=== PATIENT | male | born 1940 | race Caucasian/White ===

== ENCOUNTER 2016-10-28 13:55 | Emergency (ER) | payer MEDICARE ==
--- NOTE | 2016-10-28 14:42 | EDM.PDOC ---
ED HPI GENERAL MEDICAL PROBLEM - General Chief Complaint: Abdominal Pain Stated Complaint: RT SIDE PAIN Time Seen by Provider: 10/28/16 14:37 Source of Information: Reports: Patient, Family (spouse) History Limitations: Reports: No Limitations, Intoxication - History of Present Illness INITIAL COMMENTS - FREE TEXT/NARRATIVE: Pt presents with right sided abdominal pain x 2 days. States that it so severe that he only wants to lie flat. Denies fever, nausea, vomiting, diarrhea. Last BM 2 days ago. Admits to a long problem with alcohol in his life. Reports sobriety x 270 days before falling off the wagon about 2 weeks ago. also gives history. He denies recent illness. Has not eaten today. Onset: Gradual Onset Date: 10/26/16 Location: Reports: Abdomen Quality: Reports: Stabbing Improves with: Reports: Rest Worsens with: Reports: None Associated Symptoms: Reports: Loss of Appetite Right Abdomen Pain Score (Numeric/FACES): 8 - Related Data Allergies Allergy/AdvReac Type Severity Reaction Status Date / Time No Known Allergies Allergy Verified 10/28/16 15:57 Home Meds: Home Meds LORazepam [LORazepam] 1 tab PO ASDIRECTED 10/28/16 [History] Past Medical History HEENT History: Reports: Cataract Genitourinary History: Reports: Renal Calculus Psychiatric History: Reports: Addiction, Anxiety Oncologic (Cancer) History: Reports: Other (See Below) Other Oncologic History: skin cancer Dermatologic History: Reports: Other (See Below) Other Dermatologic History: skin cancer - Past Surgical History HEENT Surgical History: Reports: Cataract Surgery GI Surgical History: Reports: Appendectomy Male Surgical History: Reports: Lithotripsy (ESWL) Social & Family History - Tobacco Use Smoking Status *Q: Never Smoker Years of Tobacco use: 4 Used Tobacco, but Quit: Yes Month Tobacco Last Used: may Second Hand Smoke Exposure: No - Recreational Drug Use Recreational Drug Use: No ED ROS GENERAL - Review of Systems Review Of Systems: See Below Constitutional: Reports: No Symptoms HEENT: Reports: No Symptoms Respiratory: Reports: No Symptoms Cardiovascular: Reports: No Symptoms Endocrine: Reports: No Symptoms GI/Abdominal: Reports: Abdominal Pain : Reports: No Symptoms Musculoskeletal: Reports: No Symptoms Skin: Reports: No Symptoms ED EXAM, GI/ABD - Physical Exam Exam: See Below Exam Limited By: Intoxication General Appearance: Alert, WD/WN, Mild Distress, Thin Ears: Normal External Exam, Normal Canal, Hearing Grossly Normal, Normal TMs Nose: Normal Inspection, Normal Mucosa, No Blood Throat/Mouth: Normal Inspection, Normal Lips, Normal Teeth, Normal Gums, Normal Oropharynx, Normal Voice, No Airway Compromise Head: Atraumatic, Normocephalic Neck: Normal Inspection, Supple, Non-Tender, Full Range of Motion Respiratory/Chest: No Respiratory Distress, Lungs Clear, Normal Breath Sounds, No Accessory Muscle Use, Chest Non-Tender Cardiovascular: Normal Peripheral Pulses, Regular Rate, Rhythm, No Edema, No Gallop, No JVD, No Murmur, No Rub GI/Abdominal Exam: Tender (right upper quadrant), Hepatomegaly Back Exam: Normal Inspection, Full Range of Motion, NT Extremities: Normal Inspection, Normal Range of Motion, Non-Tender, Normal Capillary Refill, No Pedal Edema Neurological: Alert, Oriented, CN II-XII Intact, Normal Cognition, Normal Gait, Normal Reflexes, No Motor/Sensory Deficits Psychiatric: Normal Affect, Normal Mood Skin Exam: Warm, Dry, Intact, Normal Color, No Rash Lymphatic: No Adenopathy Course - Vital Signs Last Recorded V/S: Last Vital Signs Temp 98.4 F 10/28/16 14:20 Pulse 63 10/28/16 15:20 Resp 18 10/28/16 15:20 BP 138/71 10/28/16 15:50 Pulse Ox 93 L 10/28/16 15:50 - Orders/Labs/Meds Orders: Active Orders 24 hr Category Date Time Status Abdomen Pelvis w Cont [CT] Stat Exams 10/28/16 15:35 Taken Iopamidol [Isovue-300 (61%)] Med 10/28/16 15:55 Active 100 ml IV . DIRECTED PRN Lactated Ringers [Ringers, Lactated] 1,000 ml Med 10/28/16 16:00 Active IV ASDIRECTED Sodium Chloride 0.9% [Normal Saline] 74 ml Med 10/28/16 16:00 Active IV ASDIRECTED Medication Orders Lactated Ringer's (Ringers, Lactated) 1,000 mls @ 500 mls/hr IV ASDIRECTED ROBBIN Last Admin: 10/28/16 15:57 Dose: 500 mls/hr Sodium Chloride (Normal Saline) 74 mls @ 3.4 mls/sec IV ASDIRECTED ROBBIN Last Admin: 10/28/16 16:04 Dose: 3.4 mls/sec Iopamidol (Isovue-300 (61%)) 100 ml IV . DIRECTED PRN PRN Reason: RADIOLOGY EXAM Stop: 10/29/16 15:56 Last Admin: 10/28/16 16:04 Dose: 100 ml Labs: Laboratory Tests 10/28/16 10/28/16 10/28/16 Range/Units 14:37 14:43 14:43 WBC 7.6 (4.5-11.0) K/uL RBC 4.53 (4.30-5.90) M/uL Hgb 14.8 (12.0-15.0) g/dL Hct 43.0 (40.0-54.0) % MCV 95 (80-98) fL MCH 33 H (27-31) pg MCHC 34 (32-36) % Plt Count 145 L (150-400) K/uL Neut % (Auto) 68 H (36-66) % Lymph % (Auto) 19 L (24-44) % [place] % (Auto) 11 H (2-6) % Eos % (Auto) 2 (2-4) % Baso % (Auto) 1 (0-1) % Sodium 144 (140-148) mmol/L Potassium 4.0 (3.6-5.2) mmol/L Chloride 104 (100-108) mmol/L Carbon Dioxide 26 (21-32) mmol/L Anion Gap 14.0 (5.0-14.0) mmol/L BUN 14 (7-18) mg/dL Creatinine 1.0 (0.8-1.3) mg/dL Est Cr Clr Drug Dosing 64.89 mL/min Estimated GFR (MDRD) > 60 (>60) Glucose 118 H (74-106) mg/dL Calcium 8.5 (8.5-10.1) mg/dL Total Bilirubin 0.3 (0.2-1.0) mg/dL AST 34 (15-37) U/L ALT 29 (12-78) U/L Alkaline Phosphatase 88 (46-116) U/L Total Protein 7.9 (6.4-8.2) g/dL Albumin 3.6 (3.4-5.0) g/dL Globulin 4.3 H (2.3-3.5) g/dL Albumin/Globulin Ratio 0.8 L (1.2-2.2) Amylase 32 (25-115) U/L Lipase 251 (73-393) U/L Urine Color Urine Appearance Urine pH (4.5-8.0) Ur Specific [place] (1.008-1.030) Urine Protein (NEGATIVE) mg/dL Urine Glucose (UA) (NEGATIVE) mg/dL Urine Ketones (NEGATIVE) mg/dL Urine Occult Blood (NEGATIVE) Urine Nitrite (NEGAITVE) Urine Bilirubin (NEGATIVE) Urine Urobilinogen (NORMAL) mg/dL Ur Leukocyte Esterase (NEGATIVE) Ethyl Alcohol mg/dL 10/28/16 10/28/16 Range/Units 14:43 14:56 WBC (4.5-11.0) K/uL RBC (4.30-5.90) M/uL Hgb (12.0-15.0) g/dL Hct (40.0-54.0) % MCV (80-98) fL MCH (27-31) pg MCHC (32-36) % Plt Count (150-400) K/uL Neut % (Auto) (36-66) % Lymph % (Auto) (24-44) % [place] % (Auto) (2-6) % Eos % (Auto) (2-4) % Baso % (Auto) (0-1) % Sodium (140-148) mmol/L Potassium (3.6-5.2) mmol/L Chloride (100-108) mmol/L Carbon Dioxide (21-32) mmol/L Anion Gap (5.0-14.0) mmol/L BUN (7-18) mg/dL Creatinine (0.8-1.3) mg/dL Est Cr Clr Drug Dosing mL/min Estimated GFR (MDRD) (>60) Glucose (74-106) mg/dL Calcium (8.5-10.1) mg/dL Total Bilirubin (0.2-1.0) mg/dL AST (15-37) U/L ALT (12-78) U/L Alkaline Phosphatase (46-116) U/L Total Protein (6.4-8.2) g/dL Albumin (3.4-5.0) g/dL Globulin (2.3-3.5) g/dL Albumin/Globulin Ratio (1.2-2.2) Amylase (25-115) U/L Lipase (73-393) U/L Urine Color Yellow Urine Appearance Clear Urine pH 6.0 (4.5-8.0) Ur Specific [place] 1.020 (1.008-1.030) Urine Protein Negative (NEGATIVE) mg/dL Urine Glucose (UA) Normal (NEGATIVE) mg/dL Urine Ketones Negative (NEGATIVE) mg/dL Urine Occult Blood Moderate (NEGATIVE) Urine Nitrite Negative (NEGAITVE) Urine Bilirubin Negative (NEGATIVE) Urine Urobilinogen Normal (NORMAL) mg/dL Ur Leukocyte Esterase Negative (NEGATIVE) Ethyl Alcohol 247 mg/dL Meds: Medications Generic Name Dose Route Start Last Admin Trade Name Freq PRN Reason Stop Dose Admin Lactated Ringer's 1,000 mls @ 500 mls/hr 10/28/16 16:00 10/28/16 15:57 Ringers, Lactated IV 500 mls/hr ASDIRECTED ROBBIN Administration Sodium Chloride 74 mls @ 3.4 mls/sec 10/28/16 16:00 10/28/16 16:04 Normal Saline IV 3.4 mls/sec ASDIRECTED ROBBIN Administration Iopamidol 100 ml 10/28/16 15:55 10/28/16 16:04 Isovue-300 (61%) IV 10/29/16 15:56 100 ml . DIRECTED PRN Administration RADIOLOGY EXAM Discontinued Medications Generic Name Dose Route Start Last Admin Trade Name Freq PRN Reason Stop Dose Admin Lorazepam 0.5 mg 10/28/16 15:38 10/28/16 15:56 Ativan IVPUSH 10/28/16 15:39 0.5 mg ONETIME ONE Administration Departure - Departure Time of Disposition: 16:43 Disposition: Home, Self-Care 01 Condition: Good Clinical Impression: Right-sided abdominal pain of unknown cause, ETOH abuse - Discharge Information Instructions: Abdominal Pain, Adult, [id number] Referrals: Haile Byers MD [Primary Care Provider] - Forms: ED Department Discharge Additional Instructions: ETOH elevated. Other labs WNL. CT of abdomen and pelvis normal. IV of LR 1000ml infused while pt. here. Ativan 0.5mg IV given per pt request for anxiety. Discussed findings with pt and spouse. Pt to followup with surgeon this week if pain persists. Encouraged to seek out an AA meeting. - Problem List & Annotations (1) ETOH abuse SNOMED Code(s): 78632343 Code(s): F10.10 - ALCOHOL ABUSE, UNCOMPLICATED Status: Acute Priority: Medium Current Visit: Yes (2) Right-sided abdominal pain of unknown cause SNOMED Code(s): 397574761 Code(s): R10.9 - UNSPECIFIED ABDOMINAL PAIN Status: Acute Current Visit: Yes - My Orders Last 24 Hours: My Active Orders 10/28/16 15:35 Abdomen Pelvis w Cont [CT] Stat 10/28/16 15:55 Iopamidol [Isovue-300 (61%)] 100 ml IV . DIRECTED PRN 10/28/16 16:00 Lactated Ringers [Ringers, Lactated] 1,000 ml IV ASDIRECTED Sodium Chloride 0.9% [Normal Saline] 74 ml IV ASDIRECTED - Assessment/Plan Last 24 Hours: My Active Orders 10/28/16 15:35 Abdomen Pelvis w Cont [CT] Stat 10/28/16 15:55 Iopamidol [Isovue-300 (61%)] 100 ml IV . DIRECTED PRN 10/28/16 16:00 Lactated Ringers [Ringers, Lactated] 1,000 ml IV ASDIRECTED Sodium Chloride 0.9% [Normal Saline] 74 ml IV ASDIRECTED
[2016-10-28] MEDS ORDERED: LORazepam 2 MG/ML MDV IVPUSH ONE (15:38)
[2016-10-28] MEDS ORDERED: Iopamidol 612 MG/ML 100 ML Bottle IV PRN (15:55)
[2016-10-28] MEDS ORDERED: Lactated Ringers 1,000 ML IV SCH (16:00)
[2016-10-28 17:27] VITALS: BP 152/86
== END 2016-10-28 17:48 | disposition home or self-care (01) ==
LOC: JP.ED 13:55
DX: R10.9 Unspecified abdominal pain (principal); F10.10 Alcohol abuse, uncomplicated; Z90.49 Acquired absence of other specified parts of digestive tract; Z98.49 Cataract extraction status, unspecified eye; Z85.828 Personal history of other malignant neoplasm of skin; Z98.890 Other specified postprocedural states
CPT/HCPCS: 36415; 74177; 80053; 81003; 82150; 83690; 85025; 96361; 96374; 99283; 99284; G0480; J2060; J7030; J7120; Q9967

== ENCOUNTER 2017-09-16 16:50 | Emergency (ER) | payer MEDICARE ==
[2017-09-16] MEDS ORDERED: Ketorolac 30 MG/ML SDV IVPUSH ONE (16:53)
[2017-09-16] MEDS ORDERED: Acetaminophen 325 MG Tab PO ONE (18:06)
--- NOTE | 2017-09-16 18:10 | EDM.PDOC ---
ED HPI GENERAL MEDICAL PROBLEM - General Chief Complaint: Genitourinary Problem Stated Complaint: KIDNEY STONE? Time Seen by Provider: 09/16/17 18:01 Source of Information: Reports: Patient History Limitations: Reports: No Limitations - History of Present Illness INITIAL COMMENTS - FREE TEXT/NARRATIVE: pt arrived with low back pain and rt flank pain. He did strain is back a few days ago and that was getting better. He is not having pain when he voids. he is going more often. he does have a fever. He has had chills. he did have very severe pain when he was at home he is better now but he has had torodol. Onset: Today, Sudden Duration: Hour(s):, Other ( Itr is better now. He does have a fever. ) Location: Reports: Abdomen, Other ( rt flank and low back area. ) Associated Symptoms: Reports: No Other Symptoms, Diaphoresis r flank Pain Score (Numeric/FACES): 10 - Related Data Allergies Allergy/AdvReac Type Severity Reaction Status Date / Time No Known Allergies Allergy Verified 09/16/17 16:52 Home Meds: Home Meds LORazepam 1 tab PO ASDIRECTED 10/28/16 [History] Past Medical History HEENT History: Reports: Cataract Genitourinary History: Reports: Renal Calculus Psychiatric History: Reports: Addiction, Anxiety Oncologic (Cancer) History: Reports: Other (See Below) Other Oncologic History: skin cancer Dermatologic History: Reports: Other (See Below) Other Dermatologic History: skin cancer - Infectious Disease History Infectious Disease History: Reports: Chicken Pox, Measles, Mumps - Past Surgical History HEENT Surgical History: Reports: Cataract Surgery GI Surgical History: Reports: Appendectomy Male Surgical History: Reports: Lithotripsy (ESWL) Social & Family History - Tobacco Use Smoking Status *Q: Never Smoker Second Hand Smoke Exposure: No - Caffeine Use Caffeine Use: Reports: Coffee - Alcohol Use Days Per Week of Alcohol Use: 0 - Recreational Drug Use Recreational Drug Use: No ED ROS GENERAL - Review of Systems Review Of Systems: See Below Constitutional: Reports: No Symptoms HEENT: Reports: No Symptoms Respiratory: Reports: No Symptoms Cardiovascular: Reports: Blood Pressure Problem Endocrine: Reports: No Symptoms GI/Abdominal: Reports: Abdominal Pain, Other ( severe left flank pain. ) : Reports: Frequency, Other (pt is voiding more frequent. ) Musculoskeletal: Reports: No Symptoms Skin: Reports: No Symptoms Neurological: Reports: No Symptoms Psychiatric: Reports: No Symptoms ED EXAM, RENAL/ - Physical Exam Exam: See Below Text/Narrative:: pt arrived very hypertensive on arrival with severe rt flank pain. He stated that he had strained is sacral ilaiac area a few days ago but this pain came suddenly and was very severe. He was found to have a fever. He has had some ticks recently. Exam Limited By: No Limitations General Appearance: Alert, Severe Distress Ears: Normal TMs Nose: Normal Inspection Throat/Mouth: Normal Inspection Head: Atraumatic Neck: Normal Inspection Respiratory/Chest: No Respiratory Distress Cardiovascular: Regular Rate, Rhythm GI/Abdominal: Other ( Pt has very severe flank pain. ) (Male) Exam: Deferred Rectal (Males) Exam: Deferred Back Exam: Normal Inspection, Other ( pt is tendwer in the rt sacral iliac area. ) Extremities: Normal Inspection Neurological: Alert, Oriented, Normal Cognition Psychiatric: Anxious Course - Vital Signs Last Recorded V/S: Last Vital Signs Temp 38.4 C H 09/16/17 19:23 Pulse 72 09/16/17 19:23 Resp 20 09/16/17 19:23 BP 168/84 H 09/16/17 19:23 Pulse Ox 98 09/16/17 19:23 - Orders/Labs/Meds Orders: Active Orders 24 hr Category Date Time Status EKG Documentation Completion [RC] ASDIRECTED Care 09/16/17 19:19 Active Abdomen Pelvis wo Cont [CT] Stat Exams 09/16/17 17:38 Taken Chest 1V Frontal [CR] Stat Exams 09/16/17 18:05 Taken CULTURE BLOOD [BC] Urgent Lab 09/16/17 17:55 Received CULTURE BLOOD [BC] Urgent Lab 09/16/17 18:08 Received CULTURE URINE [RM] Stat Lab 09/16/17 18:01 Ordered E. CHAFFEENSIS-HME (MONOCYTIC) Stat Lab 09/16/17 17:55 Received LYME, TOTAL AB TEST/REFLEX Stat Lab 09/16/17 17:55 Received Sodium Chloride 0.9% [Normal Saline] 1,000 ml Med 09/16/17 18:15 Active IV ASDIRECTED Blood Culture x2 Reflex Set [OM.PC] Urgent Oth 09/16/17 18:00 Ordered EKG 12 Lead [EK] Routine Ther 09/16/17 19:19 Ordered Medication Orders Sodium Chloride (Normal Saline) 1,000 mls @ 999 mls/hr IV ASDIRECTED ROBBIN Last Admin: 09/16/17 18:19 Dose: 999 mls/hr Labs: Laboratory Tests 09/16/17 09/16/17 09/16/17 Range/Units 17:31 17:55 17:55 WBC 13.7 H (4.5-11.0) K/uL RBC 4.14 L (4.30-5.90) M/uL Hgb 13.8 (12.0-15.0) g/dL Hct 39.8 L (40.0-54.0) % MCV 96 (80-98) fL MCH 33 H (27-31) pg MCHC 35 (32-36) % Plt Count 147 L (150-400) K/uL Neut % (Auto) 80 H (36-66) % Lymph % (Auto) 7 L (24-44) % [place] % (Auto) 13 H (2-6) % Eos % (Auto) 0 L (2-4) % Baso % (Auto) 0 (0-1) % Sodium 137 L (140-148) mmol/L Potassium 3.7 (3.6-5.2) mmol/L Chloride 100 (100-108) mmol/L Carbon Dioxide 25 (21-32) mmol/L Anion Gap 15.7 H (5.0-14.0) mmol/L BUN 10 (7-18) mg/dL Creatinine 0.9 (0.8-1.3) mg/dL Est Cr Clr Drug Dosing 70.97 mL/min Estimated GFR (MDRD) > 60 (>60) Glucose 126 H (74-106) mg/dL Lactic Acid (0.4-2.0) mmol/L Calcium 9.0 (8.5-10.1) mg/dL Total Bilirubin 0.7 D (0.2-1.0) mg/dL AST 24 (15-37) U/L ALT 32 (12-78) U/L Alkaline Phosphatase 90 (46-116) U/L Total Protein 7.3 (6.4-8.2) g/dL Albumin 3.9 (3.4-5.0) g/dL Globulin 3.4 (2.3-3.5) g/dL Albumin/Globulin Ratio 1.1 L (1.2-2.2) Urine Color Yellow Urine Appearance Slightly cloudy Urine pH 9.0 H (4.5-8.0) Ur Specific [place] 1.015 (1.008-1.030) Urine Protein Negative (NEGATIVE) mg/dL Urine Glucose (UA) Normal (NEGATIVE) mg/dL Urine Ketones Negative (NEGATIVE) mg/dL Urine Occult Blood Negative (NEGATIVE) Urine Nitrite Negative (NEGAITVE) Urine Bilirubin Negative (NEGATIVE) Urine Urobilinogen Normal (NORMAL) mg/dL Ur Leukocyte Esterase Negative (NEGATIVE) Urine RBC 0-5 (0-5) Urine WBC 0-5 (0-5) Ur Epithelial Cells Rare Amorphous Sediment Few Urine Bacteria Few Urine Mucus Rare 09/16/17 Range/Units 17:55 WBC (4.5-11.0) K/uL RBC (4.30-5.90) M/uL Hgb (12.0-15.0) g/dL Hct (40.0-54.0) % MCV (80-98) fL MCH (27-31) pg MCHC (32-36) % Plt Count (150-400) K/uL Neut % (Auto) (36-66) % Lymph % (Auto) (24-44) % [place] % (Auto) (2-6) % Eos % (Auto) (2-4) % Baso % (Auto) (0-1) % Sodium (140-148) mmol/L Potassium (3.6-5.2) mmol/L Chloride (100-108) mmol/L Carbon Dioxide (21-32) mmol/L Anion Gap (5.0-14.0) mmol/L BUN (7-18) mg/dL Creatinine (0.8-1.3) mg/dL Est Cr Clr Drug Dosing mL/min Estimated GFR (MDRD) (>60) Glucose (74-106) mg/dL Lactic Acid 1.4 (0.4-2.0) mmol/L Calcium (8.5-10.1) mg/dL Total Bilirubin (0.2-1.0) mg/dL AST (15-37) U/L ALT (12-78) U/L Alkaline Phosphatase (46-116) U/L Total Protein (6.4-8.2) g/dL Albumin (3.4-5.0) g/dL Globulin (2.3-3.5) g/dL Albumin/Globulin Ratio (1.2-2.2) Urine Color Urine Appearance Urine pH (4.5-8.0) Ur Specific [place] (1.008-1.030) Urine Protein (NEGATIVE) mg/dL Urine Glucose (UA) (NEGATIVE) mg/dL Urine Ketones (NEGATIVE) mg/dL Urine Occult Blood (NEGATIVE) Urine Nitrite (NEGAITVE) Urine Bilirubin (NEGATIVE) Urine Urobilinogen (NORMAL) mg/dL Ur Leukocyte Esterase (NEGATIVE) Urine RBC (0-5) Urine WBC (0-5) Ur Epithelial Cells Amorphous Sediment Urine Bacteria Urine Mucus Meds: Medications Generic Name Dose Route Start Last Admin Trade Name Freq PRN Reason Stop Dose Admin Sodium Chloride 1,000 mls @ 999 mls/hr 09/16/17 18:15 09/16/17 18:19 Normal Saline IV 999 mls/hr ASDIRECTED ROBBIN Administration Discontinued Medications Generic Name Dose Route Start Last Admin Trade Name Freq PRN Reason Stop Dose Admin Acetaminophen 650 mg 09/16/17 18:06 09/16/17 18:22 Tylenol PO 09/16/17 18:07 650 mg NOW ONE Administration Ketorolac Tromethamine 30 mg 09/16/17 16:53 09/16/17 17:11 Toradol IVPUSH 09/16/17 16:54 30 mg ONETIME ONE Administration - Re-Assessments/Exams Free Text/Narrative Re-Assessment/Exam: 09/16/17 20:16 bp has come down nicely. He is tender in the sacraliliac area, His cat scan show alot of stones in the kidneys and I would be suspeciou that he passed a small stone. He has had tick bites. He has a fever. Blood cultures and urine culture is pending as is the tick studies, will place him on doxycyline. Departure - Departure Time of Disposition: 20:07 Disposition: Home, Self-Care 01 Condition: Fair Clinical Impression: Sacroiliac (ligament) sprain, Kidney calculi, At high risk for tick borne illness - Discharge Information Referrals: Haile Byers MD [Primary Care Provider] - Forms: ED Department Discharge Care Plan Goals: push fluids, doxycline 100mg bid, will notify of the cultures, urine and blood and the tick studies. tramodol 50mg tid as needed for pain - My Orders Last 24 Hours: My Active Orders 09/16/17 17:55 CULTURE BLOOD [BC] Urgent E. CHAFFEENSIS-HME (MONOCYTIC) Stat LYME, TOTAL AB TEST/REFLEX Stat 09/16/17 18:00 Blood Culture x2 Reflex Set [OM.PC] Urgent 09/16/17 18:01 CULTURE URINE [RM] Stat 09/16/17 18:05 Chest 1V Frontal [CR] Stat 09/16/17 18:08 CULTURE BLOOD [BC] Urgent 09/16/17 18:15 Sodium Chloride 0.9% [Normal Saline] 1,000 ml IV ASDIRECTED 09/16/17 19:19 EKG Documentation Completion [RC] ASDIRECTED EKG 12 Lead [EK] Routine - Assessment/Plan Last 24 Hours: My Active Orders 09/16/17 17:55 CULTURE BLOOD [BC] Urgent E. CHAFFEENSIS-HME (MONOCYTIC) Stat LYME, TOTAL AB TEST/REFLEX Stat 09/16/17 18:00 Blood Culture x2 Reflex Set [OM.PC] Urgent 09/16/17 18:01 CULTURE URINE [RM] Stat 09/16/17 18:05 Chest 1V Frontal [CR] Stat 09/16/17 18:08 CULTURE BLOOD [BC] Urgent 09/16/17 18:15 Sodium Chloride 0.9% [Normal Saline] 1,000 ml IV ASDIRECTED 09/16/17 19:19 EKG Documentation Completion [RC] ASDIRECTED EKG 12 Lead [EK] Routine
[2017-09-16] MEDS ORDERED: Sodium Chloride 0.9% 1,000 ML IV SCH (18:15)
[2017-09-16 19:24] VITALS: BP 168/84
--- NOTE | 2017-09-17 08:46 | CR ---
CHEST: Portable CLINICAL HISTORY:SOB COMPARISON:None FINDINGS: Heart size is mildly enlarged. Pulmonary vascularity is normal. There is a vague nodular p erihilar density on the right. No infiltrates are seen. There are no effusions. IMPRESSION: Vague nodular density in the right perihilar region. Prior chest films would be helpful. If no prior studies are available, short-term follow-up 2 view ch est is recommended.
[2017-09-19 14:19] LABS: LYME IGG/IGM AB <0.91 ISR (0.00-0.90)
== END 2017-09-16 20:34 | disposition home or self-care (01) ==
LOC: JP.ED 16:50
DX: S33.6XXA Sprain of sacroiliac joint, initial encounter (principal); N20.0 Calculus of kidney; F41.9 Anxiety disorder, unspecified; X58.XXXA Exposure to other specified factors, initial encounter
CPT/HCPCS: 36415; 71045; 74176; 80053; 81001; 83605; 85025; 86666; 87040; 87086; 93005; 96361; 96374; 99284; A9270; J1885; J7030; 86618; 93010

== ENCOUNTER 2020-08-03 09:09 | Emergency (ER) | payer MEDICARE ==
[2020-08-03] MEDS ORDERED: Ketorolac 60 MG/2 ML SDV IM ONE (09:52)
[2020-08-03] MEDS ORDERED: Baclofen 10 MG Tab PO ONE (09:52)
--- NOTE | 2020-08-03 09:57 | EDM.PDOC ---
ED HPI GENERAL MEDICAL PROBLEM - General Chief Complaint: General Stated Complaint: NECK AND SHOULDER PAIN ALSO HEADACHE Time Seen by Provider: 08/03/20 09:54 Source of Information: Reports: Patient History Limitations: Reports: No Limitations - History of Present Illness INITIAL COMMENTS - FREE TEXT/NARRATIVE: pt missed a step and ended up falling down 3 steps. He now has severe pain in the rt posterior cervical area. He did not have pain right after the injury. Onset: Gradual, Other ( pain started yesterday, ) Duration: Hour(s): Location: Reports: Neck, Other (pt does have a headache also He did not feel that he hit his head at the time of the injury. ) Neck Pain Score (Numeric/FACES): 4 - Related Data Allergies Allergy/AdvReac Type Severity Reaction Status Date / Time No Known Allergies Allergy Verified 08/03/20 09:52 Home Meds: Home Meds LORazepam 1 tab PO ASDIRECTED 10/28/16 [History] Past Medical History HEENT History: Reports: Cataract Genitourinary History: Reports: Renal Calculus Psychiatric History: Reports: Addiction, Anxiety Oncologic (Cancer) History: Reports: Other (See Below) Other Oncologic History: skin cancer Dermatologic History: Reports: Other (See Below) Other Dermatologic History: skin cancer - Infectious Disease History Infectious Disease History: Reports: Chicken Pox, Measles, Mumps - Past Surgical History HEENT Surgical History: Reports: Cataract Surgery GI Surgical History: Reports: Appendectomy Male Surgical History: Reports: Lithotripsy (ESWL) Social & Family History - Caffeine Use Caffeine Use: Reports: Coffee ED ROS GENERAL - Review of Systems Review Of Systems: See Below Constitutional: Reports: No Symptoms HEENT: Reports: No Symptoms Respiratory: Reports: No Symptoms Cardiovascular: Reports: No Symptoms Endocrine: Reports: No Symptoms GI/Abdominal: Reports: No Symptoms : Reports: No Symptoms Musculoskeletal: Reports: Neck Pain, Muscle Stiffness, Other (pt has no radicular symptoms) Skin: Reports: No Symptoms Neurological: Reports: Headache Psychiatric: Reports: Anxiety ED EXAM, GENERAL - Physical Exam Exam: See Below Free Text/Narrative:: pt arrived with a headache and sinificant pain on the rt side of his neck. He fell on thur and tried to catch himself. He does not think he had a sig blow to the head. Exam Limited By: No Limitations General Appearance: Alert, Anxious, Other (pupils equal and reactive. ) Ears: Normal TMs Nose: Normal Inspection Throat/Mouth: Normal Inspection Head: Atraumatic Neck: Other (pt is very tender in the rt post cervical area. ) Respiratory/Chest: No Respiratory Distress Cardiovascular: Regular Rate, Rhythm GI/Abdominal: Soft, Non-Tender (Male) Exam: Deferred Rectal (Males) Exam: Deferred Back Exam: Paraspinal Tenderness, Other (particularly on the rt) Extremities: Normal Inspection Neurological: Alert, Oriented, Inattentive Course - Vital Signs Last Recorded V/S: Last Vital Signs Temp 36.8 C 08/03/20 09:50 Pulse 91 08/03/20 10:01 Resp 14 08/03/20 10:01 BP 207/111 H 08/03/20 10:01 Pulse Ox 100 08/03/20 10:01 - Orders/Labs/Meds Meds: Medications Discontinued Medications Generic Name Dose Route Start Last Admin Trade Name Freq PRN Reason Stop Dose Admin Baclofen 10 mg 08/03/20 09:52 08/03/20 10:01 Baclofen 10 Mg Tab PO 08/03/20 09:53 10 mg ONETIME ONE Administration Ketorolac Tromethamine 60 mg 08/03/20 09:52 08/03/20 10:01 Ketorolac 60 Mg/2 Ml Sdv IM 08/03/20 09:53 60 mg ONETIME ONE Administration - Re-Assessments/Exams Free Text/Narrative Re-Assessment/Exam: 08/03/20 11:41 pt had baclofen 10 mg and torodol 30 mg with excellent relief. He had a cat scan of the head and neg which were neg for acute injury. Departure - Departure Time of Disposition: 11:34 Disposition: Home, Self-Care 01 Condition: Fair Clinical Impression: Cervical paraspinal muscle spasm - Discharge Information Instructions: Muscle Cramps and Spasms, [id number] Referrals: Haile Byers MD [Primary Care Provider] - Forms: ED Department Discharge Care Plan Goals: rest, cool pack to post cervical area, baclofen 10 mg bid to relax muscles, torodol 10 mg q6h as needed for pain, rtc if problems. Sepsis Event Note (ED) - Evaluation Sepsis Screening Result: No Definite Risk - Focused Exam Vital Signs: Vital Signs Temp Pulse Resp BP Pulse Ox 08/03/20 10:01 91 14 207/111 H 100 08/03/20 09:50 36.8 C 75 20 213/113 H 96 08/03/20 09:37 36.8 C 75 20 213/113 H 96
[2020-08-03 10:11] VITALS: BP 207/111; PULSE 91
--- NOTE | 2020-08-03 11:18 | CRLCT ---
For Patients: As a result of the Century Cures Act, medical imaging exams and procedure reports are released immediately into your electronic medical record. You may view this report before your referring provider. If you have questions, please contact your health care provider. Indication: Fall, head pain Technique: Volumetric multidetector CT images of the head were obtained without the administration of low osmolar intravenous contrast. Comparison: None available Findings: There is no intra-axial or extra-axial fluid collection. There is no mass effect or midline shift. There is age-related cortical atrophy with mild sulcal widening and ex vacuo dilatation of the lateral ventricles. There are chronic small vessel disease changes in the subcortical and periventricular white matter without lost smith-white differentiation. The orbits and their contents are grossly within normal limits. The bony calvarium is grossly intact. The paranasal sinuses are clear. The mastoid air cells are well aerated. Impression: 1. Age-related changes of the brain without acute intracranial abnormality. Please note that all CT scans at this facility use dose modulation, iterative reconstruction, and/or weight-based dosing when appropriate to reduce radiation dose to as low as reasonably achievable. Dictated by Berto Salter MD @ 08/03/2020 11:16:[address] Berto Salter @ Aug 03 2020 11:16AM
--- NOTE | 2020-08-03 11:22 | CRLCT ---
For Patients: As a result of the Cures Act, medical imaging exams and procedure reports are released immediately into your electronic medical record. You may view this report before your referring provider. If you have questions, please contact your health care provider. Indication: Fall Technique: Volumetric multidetector CT images of the cervical spine were obtained without the administration of IV contrast. Comparison: None available. Findings: The cervical vertebral body heights are grossly maintained. There is mild straightening of the normal cervical lordosis. There is minimal anterolisthesis of C3 on C4, C4 on C5 and C5 on C6. There is no displaced fracture or dislocation. There is moderate to severe degenerative disc disease with disc height loss and marginal osteophyte formation. There is moderate to severe degenerative change of the odontoid process. There is moderate to severe facet arthrosis. The paraspinous soft tissues are grossly within normal limits. Impression: Moderate to severe degenerative changes of the cervical spine without evidence of acute osseous abnormality. Please note that all CT scans at this facility use dose modulation, iterative reconstruction, and/or weight-based dosing when appropriate to reduce radiation dose to as low as reasonably achievable. Dictated by Berto Salter MD @ 08/03/2020 11:20:[address] Berto Salter @ Aug 03 2020 11:20AM
== END 2020-08-03 11:43 | disposition home or self-care (01) ==
LOC: JP.ED 09:09
DX: M62.838 Other muscle spasm (principal); W10.9XXA Fall (on) (from) unspecified stairs and steps, initial encounter
CPT/HCPCS: 70450; 72125; 96372; 99283; 99284; A9270; J1885